=== PATIENT | male | born 1960 | race American Indian/Alaskan Native ===

== ENCOUNTER 2020-05-10 09:54 | Outpatient (CLI) | payer OTHER ==
--- NOTE | 2020-05-10 12:07 | XRay Report ---
LEFT KNEE 4 VIEW(S) INDICATION / CLINICAL INFORMATION: LEFT KNEE PAIN COMPARISON: None available. FINDINGS: BONES / JOINT(S): No acute fracture or subluxation. Advanced tricompartmental degenerative arthrosis with joint space narrowing and marginal osteophyte formation. SOFT TISSUES: No significant abnormality. No large joint effusion. ADDITIONAL FINDINGS: Vascular calcifications are noted. IMPRESSION: 1. No acute osseous abnormality. 2. Advanced tricompartmental degenerative arthrosis. Signer Name: Moris Azevedo MD Signed: 05/10/2020 12:03 PM Workstation Name: [id number]
--- NOTE | 2020-05-10 12:08 | XRay Report ---
RIGHT SHOULDER 3 VIEW(S) INDICATION / CLINICAL INFORMATION: RIGHT SHOULDER PAIN COMPARISON: None available. FINDINGS: BONES / JOINT(S): No acute fracture or subluxation. Mild glenohumeral joint degenerative arthrosis. SOFT TISSUES: No significant abnormality. ADDITIONAL FINDINGS: None. IMPRESSION: No acute osseous abnormality. Signer Name: Moris Azevedo MD Signed: 05/10/2020 12:04 PM Workstation Name: [id number]
--- NOTE | 2020-05-10 12:10 | XRay Report ---
LUMBOSACRAL SPINE 3 VIEWS INDICATION / CLINICAL INFORMATION: BACK PAIN. COMPARISON: None available. FINDINGS: VERTEBRAE: No acute fracture. No significant malalignment. DISC SPACES / FACET JOINTS:Moderate multilevel degenerative spondylosis with disc space height loss t hroughout the lumbar spine and anterior osteophyte formation. There is also posterior element hypertr ophy. PARASPINAL SOFT TISSUES:No significant abnormality. ADDITIONAL FINDINGS: Multiple calcified bodies are seen adjacent to the L1-2 disc space on the right, and these could reflect renal stones. IMPRESSION: 1. No acute osseous abnormality. 2. Moderate multilevel degenerative spondylosis. 3. Calcified bodies adjacent to the L1 disc space on the right could reflect renal stones. Signer Name: Moris Azevedo MD Signed: 05/10/2020 12:05 PM Workstation Name: [id number]
== END 2020-05-10 09:55 | disposition home or self-care (01) ==
LOC: XRAY 09:54
PROVIDERS: ATTEND Internal Medicine
DX: M47.817 Spondylosis without myelopathy or radiculopathy, lumbosacral region (principal); M54.9 Dorsalgia, unspecified; M25.511 Pain in right shoulder; M19.011 Primary osteoarthritis, right shoulder; M17.12 Unilateral primary osteoarthritis, left knee
CPT/HCPCS: 72100